=== PATIENT | female | born 1995 | race Two or more races ===

== ENCOUNTER 2019-01-08 03:17 | Emergency (ER) | payer OTHER ==
[~2019-01-08] VITALS: Ht 165.1 cm; Wt 54.4 kg
--- NOTE | 2019-01-08 03:25 | NUR ---
PT BIB[facility] FROM HOME FOR ALCOHOL INTOXICATION. PT DENIES SI, HI, A/V HALLUCINATIONS. PT AAOX4. RESPIRATIONS EVEN AND UNLABORED. SKIN WARM AND INTACT. VITAL SIGNS STABLE. NO ACUTE DISTRESS NOTED AT THIS TIME. WILL CONTINUE TO MONITOR
--- NOTE | 2019-01-08 03:30 | NUR ---
[facility] AT BEDSIDE
--- NOTE | 2019-01-08 03:38 | NUR ---
[employer] AT BEDSIDE FOR BLOOD DRAW
[2019-01-08 03:47] LABS: BASOPHILS % (AUTO) 0.7 % (0.0-2.0); HEMATOCRIT 40 % (33-45); HEMOGLOBIN 13.6 g/dL (11.5-14.8); LYMPHOCYTES # (AUTO) 2.1 /CMM (0.8-4.8); LYMPHOCYTES % (AUTO) 42.7 % (20.0-44.0); MEAN CORPUSCULAR HGB CONC 34 g/dl (31.0-36.0); MEAN CORPUSCULAR VOLUME 92 fL (82-100); MONOCYTES # (AUTO) 0.4 /CMM (0.1-1.30); MONOCYTES % (AUTO) 7.2 % (2.0-12.0); NEUTROPHILS # (AUTO) 2.5 /CMM (1.8-8.9); NEUTROPHILS % (AUTO) 49.4 % (43.0-81.0); PLATELET COUNT (AUTO) 312 /CMM (150-450); RED BLOOD CELL COUNT(AUTO) 4.37 MIL/uL (4.0-5.2)
[2019-01-08 03:55] LABS: CALCIUM, SERUM 8.8 mg/dL (8.5-10.1); CREATININE 0.8 mg/dL (0.6-1.3); POTASSIUM 3.7 mmol/L (3.5-5.1)
--- NOTE | 2019-01-08 04:00 | NUR ---
URINE COLLECTED AND SENT TO LAB
[2019-01-08 04:01] LABS: ALBUMIN 4.3 g/dL (3.4-5.0); BILIRUBIN,DIRECT 0.1 mg/dL (0.0-0.2); BILIRUBIN,TOTAL 0.2 mg/dL (0.2-1.0); TOTAL PROTEIN, SERUM 7.9 g/dL (6.4-8.2)
[2019-01-08 04:02] LABS: SALICYLATE 0.6 mg/dL (2.8-20.0)
--- NOTE | 2019-01-08 04:21 | NUR ---
Patient does not wish to proceed with medical care recommended by Dr. Carbajal. Patient given information related to possible complications, up to and including , which could occur as a result of leaving the hospital at this time. Patient verbalizes understanding of risks involved due to leaving against medical advice. Patient has signed AMA form. Pt ambulatory with a steady gait. PT AAOX4. NO ACUTE DISTRESS NOTED. PT DENIES SI/HI AT THIS TIME. PT PROVIDED WITH TAXI .
[2019-01-08 04:22] VITALS: BP 127/89
== END 2019-01-08 04:23 | disposition left against medical advice (07) ==
LOC: ER 03:21
DX: Z13.89 Encounter for screening for other disorder (principal); F32.9 Major depressive disorder, single episode, unspecified
CPT/HCPCS: 36415; 80048; 80076; 80305; 80307; 80329; 84702; 85025; 99283; A4606; G0480